=== PATIENT | female | born 1990 | race Two or more races ===

== ENCOUNTER 2024-03-17 10:15 | Observation (INO) | payer OTHER ==
[2024-03-17 10:54] LABS: Basophils # (auto) 0 10 ^3/uL (0-0.2); Basophils % (auto) 0.2 % (0.0-2.0); Eosinophils # (auto) 0.1 10 ^3/uL (0-0.8); Eosinophils % (auto) 0.7 % (0.0-7.0); Hematocrit 37.7 % (36.0-46.0); Hemoglobin 12.5 g/dL (12.2-16.2); Lymphocytes # (auto) 2.6 10 ^3/uL (0.4-5.4); Mean Corpuscular Hemoglobin 30.1 pg (28.0-32.0); Mean Corpuscular Hgb Conc. 33.2 g/dL (32.0-36.0); Mean Corpuscular Volume 90.7 fL (80.0-100.0); Monocytes # (auto) 0.7 10 ^3/uL (0-1.3); Monocytes % (auto) 6.2 % (0.0-12.0); Neutrophils # (auto) 7.4 10 ^3/uL (1.6-8.6); Neutrophils % (auto) 68.9 % (37.0-80.0); Nucleated Red Blood Cells % 0.1 %; Red Blood Cells 4.16 10^6/uL (4.0-5.20); Red Cell Distribution Width 14.6 % (11.8-14.3); White Blood Cell 10.7 10^3/uL (4.4-10.8)
[2024-03-17 10:55] LABS: Urine Bacteria FEW /hpf (None Seen); Urine Blood Negative /uL (Negative); Urine Clarity Clear (Clear); Urine Color Light-Yellow (Yellow); Urine Hyaline Cast FEW /lpf (0 - 2); Urine Mucus FEW (None Seen); Urine Protein, UAD TRACE (Negative); Urine Specific Gravity 1.019 (1.001-1.035); Urine Urobilinogen Normal (Negative); Urine WBC 1 /hpf (0 - 5); Urine pH 6.5 (5.0-9.0)
[2024-03-17 11:13] LABS: INR 0.92 (0.9-1.15); Partial Thromboplastin Time 26.2 SEC (24.5-34.5); Prothrombin Time 9.8 sec (9.3-11.8)
[2024-03-17 11:15] LABS: Creatinine, Urine 102.43 mg/dL (30.0-125.0); Urine Protein/Creatinine Ratio 0.27
[2024-03-17 11:16] LABS: Alanine Aminotransferase 11 U/L (7-40); Alkaline Phosphatase 139 U/L (46-116); Anion Gap 8 (5-15); BUN/Creatinine Ratio 11.1 (10.0-20.0); Blood Urea Nitrogen 7 mg/dL (9-23); Calcium 9.8 mg/dL (8.5-10.1); Carbon Dioxide 22 mmol/L (20-30); Chloride 108 mmol/L (98-107); Glucose 79 mg/dL (74-106); Potassium 4.1 mmol/L (3.5-5.1); Sodium 138 mmol/L (136-145)
[2024-03-17 11:17] LABS: Albumin 3.8 g/dL (3.2-4.8); Aspartate Aminotransferase 17 U/L (13-40)
[2024-03-17 11:18] LABS: Bilirubin, Total 0.4 mg/dL (0.2-1.0); Total Protein 6.9 g/dL (5.7-8.2)
[2024-03-17 12:37] LABS: Uric Acid 5.3 mg/dL (3.1-7.8)
[2024-03-17] MEDS ORDERED: PREN-96 PO (12:59)
== END 2024-03-17 13:22 | disposition home or self-care (01) ==
LOC: LDRP 10:15 → UNDOADMOB 10:15 → LDRP 10:21
PROVIDERS: ADMIT Obstetrics & Gynecology; ATTEND Obstetrics & Gynecology
DX: O26.893 Other specified pregnancy related conditions, third trimester (principal); R51.9 Headache, unspecified; Z3A.38 38 weeks gestation of pregnancy; Z79.899 Other long term (current) drug therapy; Z86.2 Personal history of diseases of the blood and blood-forming organs and certain disorders involving the immune mechanism
CPT/HCPCS: 36415; 59025; 76818; 80053; 81001; 81002; 82570; 84156; 84550; 85025; 85610; 85730; G0378

== ENCOUNTER 2024-03-29 10:06 | Observation (INO) | payer OTHER ==
[~2024-03-29 10:06] MED LIST: PREN-96 PO
[2024-03-30] MEDS ORDERED: DOCU-94 PO (23:54)
[2024-03-30] MEDS ORDERED: IBUP-1456 PO (23:54)
[2024-03-30] MEDS ORDERED: HYDR-4902 PO (23:54)
== END 2024-03-29 12:06 | disposition home or self-care (01) ==
LOC: LDRP 10:06 → UNDOADMOB 10:06 → LDRP 10:24 → UNDODISOB 12:06
PROVIDERS: ADMIT Obstetrics & Gynecology; ATTEND Obstetrics & Gynecology
DX: O48.0 Post-term pregnancy (principal); Z3A.40 40 weeks gestation of pregnancy
CPT/HCPCS: 59025; 76818; 81002; 94760; G0378

== ENCOUNTER 2024-03-30 10:45 | Inpatient (IN) | payer OTHER ==
[~2024-03-30] VITALS: Ht 162.6 cm; Wt 99.8 kg
[2024-03-30] MEDS: CARBOPROST TROMETHAMINE 250 MCG/1ML VIAL IM ONE (00:09)
[2024-03-30] MEDS ORDERED: PHISODERM TOP SOLN 240ML BTL TOP PRN (13:45)
[2024-03-30] MEDS ORDERED: DERMOPLAST 60ML BOTTLE TOP PRN (13:45)
[2024-03-30] MEDS ORDERED: WITCH HAZEL-GLYCERIN PAD TOP PRN (13:45)
[2024-03-30] MEDS ORDERED: BUTORPHANOL TARTRATE 2 MG/1 ML VIAL IV PRN (13:45)
[2024-03-30] MEDS ORDERED: LIDOCAINE 2%HCL (LOCAL ANESTH.) INJ 20ML MDV IJ PRN (13:45)
[2024-03-30] MEDS: ONDANSETRON HCL 4 MG/2 ML VIAL IM ONE (14:00)
[2024-03-30] MEDS ORDERED: LACT. RINGERS/OXYTOCIN 20UNITS 500 ML IV ONE ×2 (14:00→14:30)
[2024-03-30] MEDS: BUTORPHANOL TARTRATE 2 MG/1 ML VIAL IV PRN (14:20)
[2024-03-30 14:30] LABS: Basophils # (auto) 0 10 ^3/uL (0-0.2); Basophils % (auto) 0.2 % (0.0-2.0); Eosinophils # (auto) 0 10 ^3/uL (0-0.8); Eosinophils % (auto) 0.1 % (0.0-7.0); Hematocrit 39.1 % (36.0-46.0); Hemoglobin 13.3 g/dL (12.2-16.2); Lymphocytes # (auto) 1.7 10 ^3/uL (0.4-5.4); Lymphocytes % (auto) 10.5 % (10.0-50.0); Mean Corpuscular Hemoglobin 31.1 pg (28.0-32.0); Mean Corpuscular Hgb Conc. 33.9 g/dL (32.0-36.0); Mean Corpuscular Volume 91.6 fL (80.0-100.0); Monocytes # (auto) 0.5 10 ^3/uL (0-1.3); Monocytes % (auto) 3.3 % (0.0-12.0); Neutrophils # (auto) 13.8 10 ^3/uL (1.6-8.6); Neutrophils % (auto) 85.9 % (37.0-80.0); Red Blood Cells 4.27 10^6/uL (4.0-5.20); Red Cell Distribution Width 15.3 % (11.8-14.3)
[2024-03-30] MEDS: PENICILLIN G POT 5MIL/D5 50ML 50 ML IV ONE (14:38)
[2024-03-30 14:50] LABS: Alanine Aminotransferase 11 U/L (7-40); Albumin 3.9 g/dL (3.2-4.8); Alkaline Phosphatase 163 U/L (46-116); Anion Gap 9 (5-15); Aspartate Aminotransferase 26 U/L (13-40); BUN/Creatinine Ratio 9.7 (10.0-20.0); Bilirubin, Total 0.4 mg/dL (0.2-1.0); Blood Urea Nitrogen 6 mg/dL (9-23); Calcium 9.9 mg/dL (8.7-10.4); Carbon Dioxide 20 mmol/L (20-30); Chloride 107 mmol/L (98-107); Glucose 89 mg/dL (74-106); Potassium 4.3 mmol/L (3.5-5.1); Sodium 136 mmol/L (136-145); Total Protein 7.3 g/dL (5.7-8.2)
[2024-03-30 14:51] LABS: INR 0.94 (0.9-1.15); Partial Thromboplastin Time 24.4 SEC (24.5-34.5)
[2024-03-30 15:30] LABS: Amphetamine Screen, Urine Neg (NEGATIVE); Barbiturate Scree,Urine Neg (NEGATIVE); Benzodiazephine Screen, Urine Neg (NEGATIVE); Cocaine Screen, Urine Neg (NEGATIVE); Opiate Scree,Urine Neg (NEGATIVE)
[2024-03-30 15:31] LABS: Cannabinoid Screen, Urine Neg (NEGATIVE); Phencyclidine Screen, Urine Neg (NEGATIVE)
[2024-03-30] MEDS ORDERED: ePHEDrine SULFATE 50 MG/ML AMP IV ONE (15:45)
[2024-03-30] MEDS ORDERED: LACTATED RINGER'S 1,000 ML IV ONE (15:45)
[2024-03-30] MEDS ORDERED: NALOXONE HCL 0.4 MG/ML VIAL IV ONE (15:45)
[2024-03-30] MEDS: fentaNYL CITRATE 100 MCG/2 ML VL IV ONE (17:16)
[2024-03-30] MEDS: ROPIVACAINE HCL 200 ML ONE (17:17)
[2024-03-30] MEDS: PENICILLIN G POTASSIUM 2,500,000 UNITS in D5W 5% 50 ML IV SCH (18:34)
[2024-03-30] MEDS: LACT. RINGERS/OXYTOCIN 20UNITS 1,000 ML IV SCH (19:40)
[2024-03-30] MEDS: LACTATED RINGER'S 1,000 ML IV SCH (21:45)
[2024-03-30] MEDS: ceFAZolin 1GM/50ML 100 ML IV ONE (21:57)
[2024-03-30] MEDS: LIDOCAINE HCL 2 %PF INJ 10ML AMP IJ ONE (23:26)
[2024-03-30] MEDS ORDERED: MORPHINE SULF PF 5 MG/10 ML VIAL ONE (23:43)
[2024-03-30] MEDS ORDERED: fentaNYL CITRATE 100 MCG/2 ML VL ONE (23:44)
[2024-03-30] MEDS ORDERED: MIDAZOLAM HCL 2MG/2ML 2ml VIAL (1mg/ml) ONE (23:44)
[2024-03-30] MEDS ORDERED: HYDROmorphone HCL 2 MG/ML VL/or syr IV PRN ×2 (23:45)
[2024-03-30] MEDS ORDERED: DexAMETHasone SOD PHOS 10MG/1ML VIAL INJ IV PRN (23:45)
[2024-03-30] MEDS: ONDANSETRON HCL 4 MG/2 ML VIAL IV ONE (23:45)
[2024-03-30] MEDS ORDERED: ePHEDrine SULFATE 50 MG/ML AMP IV PRN (23:45)
[2024-03-30] MEDS ORDERED: LABETALOL HCL 5 MG/ML 4ML SYRINGE IV PRN (23:45)
[2024-03-30] MEDS ORDERED: ONDANSETRON HCL 4 MG/2 ML VIAL IV PRN (23:45)
[2024-03-30] MEDS ORDERED: MIDAZOLAM HCL 2MG/2ML 2ml VIAL (1mg/ml) IV PRN (23:45)
[2024-03-30] MEDS ORDERED: NALOXONE HCL 0.4 MG/ML VIAL IV PRN (23:45)
[2024-03-30] MEDS: ceFAZolin 1GM/50ML 50 ML IV ONE (23:50)
[2024-03-30] MEDS ORDERED: IBUP-1456 PO (23:54)
[2024-03-30] MEDS ORDERED: DOCU-94 PO (23:54)
[2024-03-30] MEDS ORDERED: HYDR-4902 PO (23:54)
[2024-03-31] VITALS (17 sets, daily range): BP systolic 93–143; BP diastolic 53–86; PULSE 59–100; RESP 14–18; TEMP 97.8–102.5; O2SAT 95–100
[2024-03-31] MEDS ORDERED: LACT. RINGERS/OXYTOCIN 20UNITS 1,000 ML IV ONE
[2024-03-31] MEDS ORDERED: ONDANSETRON HCL 4 MG/2 ML VIAL IV PRN ×2 (03:00)
[2024-03-31] MEDS ORDERED: ePHEDrine SULFATE 50 MG/ML AMP IV PRN (03:00)
[2024-03-31] MEDS: LACTATED RINGER'S 1,000 ML IV SCH (03:00)
[2024-03-31] MEDS: GUM (CHEWING) 1 GUM CHEW CHEW ONE ×2 (03:00)
[2024-03-31 06:33] LABS: Basophils # (auto) 0 10 ^3/uL (0-0.2); Basophils % (auto) 0.1 % (0.0-2.0); Eosinophils # (auto) 0 10 ^3/uL (0-0.8); Hematocrit 33.3 % (36.0-46.0); Hemoglobin 11.2 g/dL (12.2-16.2); Lymphocytes # (auto) 1.7 10 ^3/uL (0.4-5.4); Lymphocytes % (auto) 12.5 % (10.0-50.0); Mean Corpuscular Hemoglobin 30.7 pg (28.0-32.0); Mean Corpuscular Hgb Conc. 33.5 g/dL (32.0-36.0); Mean Corpuscular Volume 91.7 fL (80.0-100.0); Monocytes # (auto) 0.7 10 ^3/uL (0-1.3); Monocytes % (auto) 5.1 % (0.0-12.0); Neutrophils # (auto) 11.5 10 ^3/uL (1.6-8.6); Neutrophils % (auto) 82.3 % (37.0-80.0); Red Blood Cells 3.63 10^6/uL (4.0-5.20); Red Cell Distribution Width 15.3 % (11.8-14.3)
[2024-03-31] MEDS: ceFAZolin 1GM/50ML 50 ML IV SCH (06:45)
[2024-03-31] MEDS ORDERED: ceFAZolin 1GM/50ML 50 ML IV SCH (08:00)
[2024-03-31 08:07] LABS: RPR Non Reactive (Non Reactive)
[2024-03-31] MEDS: ACETAMINOPHEN IV 1000 MG/100ML (10MG/ML) IV PRN (08:17)
[2024-03-31] MEDS: KETOROLAC TROMETH 30 MG/ML 1ML VIAL IV PRN (18:27)
[2024-03-31] MEDS: PIPERACILLIN-TAZOB 3.375GM 100 ML IV SCH (19:54)
[2024-03-31] MEDS: DOCUSATE SOD 100 MG CAP PO SCH (22:30)
[2024-04-01] VITALS (7 sets, daily range): BP systolic 94–137; BP diastolic 56–73; PULSE 74–97; RESP 15–18; TEMP 98–100.7; O2SAT 95–99
[2024-04-01] MEDS: SIMETHICONE 80 MG CHEWABLE TABLET PO SCH (06:00)
[2024-04-01] MEDS: IBUPROFEN 800 MG TAB PO PRN (08:16)
[2024-04-01] MEDS: DOCUSATE CALCIUM 240 MG CAP PO SCH (09:46)
[2024-04-01] MEDS: HYDROcodone-ACET 5/325MG TAB PO PRN ×2 (19:00→22:50)
[2024-04-02 02:35] VITALS: BP 101/62; PULSE 79; RESP 16; TEMP 98.6; O2SAT 99
[2024-04-02 06:41] VITALS: BP 131/74; PULSE 91; RESP 18; TEMP 100.6; O2SAT 97
[2024-04-02] MEDS ORDERED: VANCOMYCIN PER PHARMACY 0 MG IV SCH (07:00)
[2024-04-02] MEDS: VANCOMYCIN 1GM/200ML 200 ML IV ONE (07:38)
[2024-04-02 07:39] LABS: Basophils # (auto) 0 10 ^3/uL (0-0.2); Basophils % (auto) 0.3 % (0.0-2.0); Eosinophils # (auto) 0 10 ^3/uL (0-0.8); Eosinophils % (auto) 0.1 % (0.0-7.0); Hematocrit 30.6 % (36.0-46.0); Hemoglobin 10.5 g/dL (12.2-16.2); Lymphocytes % (auto) 14.7 % (10.0-50.0); Mean Corpuscular Hemoglobin 31.3 pg (28.0-32.0); Mean Corpuscular Hgb Conc. 34.3 g/dL (32.0-36.0); Mean Corpuscular Volume 91.1 fL (80.0-100.0); Monocytes # (auto) 0.4 10 ^3/uL (0-1.3); Monocytes % (auto) 6.6 % (0.0-12.0); Neutrophils # (auto) 5.1 10 ^3/uL (1.6-8.6); Neutrophils % (auto) 78.3 % (37.0-80.0); Red Blood Cells 3.36 10^6/uL (4.0-5.20); Red Cell Distribution Width 15.6 % (11.8-14.3); White Blood Cell 6.5 10^3/uL (4.4-10.8)
[2024-04-02] MEDS: PIPERACILLIN-TAZOB 3.375GM 100 ML IV SCH (09:00)
[2024-04-02 10:47] VITALS: BP 113/66; PULSE 80; RESP 16; TEMP 98.5; O2SAT 98
[2024-04-02 11:44] LABS: Alanine Aminotransferase 18 U/L (7-40); Albumin 3.1 g/dL (3.2-4.8); Alkaline Phosphatase 104 U/L (46-116); Anion Gap 5 (5-15); Aspartate Aminotransferase 33 U/L (13-40); BUN/Creatinine Ratio 8.1 (10.0-20.0); Blood Urea Nitrogen 5 mg/dL (9-23); Calcium 8.7 mg/dL (8.5-10.1); Carbon Dioxide 25 mmol/L (20-30); Chloride 107 mmol/L (98-107); Glucose 89 mg/dL (74-106); Potassium 3.7 mmol/L (3.5-5.1); Sodium 137 mmol/L (136-145)
[2024-04-02 11:45] LABS: Bilirubin, Total 0.2 mg/dL (0.2-1.0); Total Protein 5.5 g/dL (5.7-8.2)
[2024-04-02] MEDS: IOHEXOL 300 MG/ML 100ML BOTTLE IJ ONE (12:12)
[2024-04-02 15:30] VITALS: BP 113/75; PULSE 72; RESP 17; TEMP 98.5; O2SAT 98
[2024-04-02 15:31] LABS: Urine Bacteria None Seen /hpf (None Seen)
[2024-04-02 15:50] LABS: Urine Blood 3+ /uL (Negative); Urine Clarity Clear (Clear); Urine Color Light-Yellow (Yellow); Urine Protein, UAD TRACE (Negative); Urine Specific Gravity 1.039 (1.001-1.035); Urine Urobilinogen Normal (Negative); Urine WBC 14 /hpf (0 - 5); Urine pH 6.5 (5.0-9.0)
[2024-04-02] MEDS ORDERED: VANCOMYCIN 1GM/200ML 200 ML IV SCH (16:15)
[2024-04-02 19:06] LABS: Treponema pallidum Ab (FTA-Ab) Non Reactive (Non Reactive)
[2024-04-02] MEDS: VANCOMYCIN 1GM/200ML 200 ML IV SCH (19:23)
[2024-04-02 19:28] VITALS: BP 127/96; PULSE 72; RESP 18; TEMP 98.4; O2SAT 96
[2024-04-02 23:00] VITALS: BP 112/74; PULSE 76; RESP 18; TEMP 98.9; O2SAT 96
[2024-04-03 03:02] VITALS: BP 122/65; PULSE 60; RESP 16; TEMP 97.6; O2SAT 98
[2024-04-03 06:40] LABS: Chloride 108 mmol/L (98-107); Potassium 3.5 mmol/L (3.5-5.1); Sodium 137 mmol/L (136-145)
[2024-04-03 06:41] LABS: Anion Gap 5 (5-15); Calcium 8.9 mg/dL (8.7-10.4); Carbon Dioxide 24 mmol/L (20-30)
[2024-04-03 06:46] LABS: BUN/Creatinine Ratio 9.7 (10.0-20.0); Blood Urea Nitrogen 6 mg/dL (9-23); Glucose 84 mg/dL (74-106)
[2024-04-03 06:50] LABS: Basophils # (auto) 0 10 ^3/uL (0-0.2); Basophils % (auto) 0.4 % (0.0-2.0); Eosinophils # (auto) 0.1 10 ^3/uL (0-0.8); Eosinophils % (auto) 1.2 % (0.0-7.0); Hematocrit 29.5 % (36.0-46.0); Hemoglobin 9.8 g/dL (12.2-16.2); Lymphocytes # (auto) 1.8 10 ^3/uL (0.4-5.4); Mean Corpuscular Hemoglobin 30.3 pg (28.0-32.0); Mean Corpuscular Hgb Conc. 33.4 g/dL (32.0-36.0); Mean Corpuscular Volume 90.7 fL (80.0-100.0); Monocytes # (auto) 0.5 10 ^3/uL (0-1.3); Monocytes % (auto) 8.3 % (0.0-12.0); Neutrophils % (auto) 62.1 % (37.0-80.0); Nucleated Red Blood Cells % 0.1 %; Red Blood Cells 3.25 10^6/uL (4.0-5.20); Red Cell Distribution Width 15.5 % (11.8-14.3); White Blood Cell 6.5 10^3/uL (4.4-10.8)
[2024-04-03 07:00] VITALS: BP 105/73; PULSE 60; RESP 18; TEMP 97.5; O2SAT 97
[2024-04-03] MEDS ORDERED: AUG875T PO (09:30)
[2024-04-03 10:02] VITALS: BP 108/67; PULSE 56; RESP 18; O2SAT 96
[2024-04-03 10:48] VITALS: TEMP 98.5
== END 2024-04-03 12:17 | disposition home or self-care (01) | DRG 786 ==
LOC: LDRP 10:45 → OBSVTOIN 13:23 → LDRP 13:24
PROVIDERS: ADMIT Obstetrics & Gynecology; ATTEND Obstetrics & Gynecology
PROC: 10D00Z1 Extraction of Products of Conception, Low, Open Approach (ICD-10-PCS; principal; 2024-03-31)
DX: O77.0 Labor and delivery complicated by meconium in amniotic fluid (principal); O41.1230 Chorioamnionitis, third trimester, not applicable or unspecified; O99.824 Streptococcus B carrier state complicating childbirth; O76 Abnormality in fetal heart rate and rhythm complicating labor and delivery; O48.0 Post-term pregnancy; O99.214 Obesity complicating childbirth; Z37.0 Single live birth; Z3A.40 40 weeks gestation of pregnancy; E66.01 Morbid (severe) obesity due to excess calories
CPT/HCPCS: 36415; 59025; 62282; 71045; 74178; 80048; 80053; 80307; 81001; 81002; 85025; 85610; 85730; 86592; 86850; 86900; 86901; 87040; 87086; 94760; 94762; 96360; 96361; 96365; 96366; 96374; G0378; J0131; J1885; J2250; J2405; J2540; J2543; J2590; J7060